=== PATIENT | female | born 1980 | race Caucasian/White ===

== ENCOUNTER 2021-08-31 16:58 | Emergency (ER) | payer MEDICAID ==
[~2021-08-31] VITALS: Ht 162.6 cm; Wt 72.0 kg
[2021-08-31 21:33] LABS: CLARITY URINE CLOUDY (CLEAR); COLOR URINE DARK YELLOW (YELLOW)
[2021-08-31 21:47] LABS: SPECIFIC GRAVITY URINE 1.005 (1.005-1.030)
[2021-08-31 21:48] LABS: KETONES URINE NEGATIVE (NEGATIVE); PROTEIN URINE NEGATIVE (NEGATIVE)
[2021-08-31 21:49] LABS: NITRITE URINE NEGATIVE (NEGATIVE); OCCULT BLOOD URINE TRACE (NEGATIVE); UROBILINOGEN URINE 0.2 E.U./dL (0.2-1.0)
[2021-08-31 21:50] LABS: LEUKOCYTE ESTERASE URINE 2+ (NEGATIVE)
[2021-08-31] MEDS ORDERED: NITR-87 MT (22:27)
[2021-08-31] MEDS ORDERED: NITROFURANTOIN 100MG M/M CAPSULE PO ONE (22:30)
[2021-08-31 23:07] VITALS: BP 125/76
[2021-09-03 05:11] LABS: NEISSERIA GONORRHOEAE NAA Negative (Negative)
== END 2021-08-31 23:22 | disposition home or self-care (01) ==
LOC: ER 16:58
DX: N39.0 Urinary tract infection, site not specified (principal); R30.0 Dysuria; E11.9 Type 2 diabetes mellitus without complications; F41.9 Anxiety disorder, unspecified
CPT/HCPCS: 81003; 81025; 87210; 87491; 87591; 99283